=== PATIENT | male | born 1975 | race Two or more races ===

== ENCOUNTER 2019-01-22 21:05 | Inpatient (IN) | payer OTHER ==
[~2019-01-22] VITALS: Ht 177.8 cm; Wt 80.9 kg
[2019-01-22] MEDS: MORPHINE SULF INJ 2 MG/ML SYRINGE 1ML IV PRN ×2 (10:28→10:48)
[2019-01-22 22:18] LABS: Urine Bacteria FEW /hpf (None Seen); Urine Blood 1+ /uL (Negative); Urine WBC <1 /hpf (0 - 3)
[2019-01-22 23:08] LABS: Basophils # (auto) 0 uL; Basophils % (auto) 0.3 % (0.0-2.0); Eosinophils # (auto) 0.1 uL; Eosinophils % (auto) 0.9 % (0.0-7.0); Hemoglobin 16.8 g/dL (13.5-17.5); Lymphocytes # (auto) 2.1 uL; Lymphocytes % (auto) 14.9 % (10.0-50.0); Mean Corpuscular Hemoglobin 28.9 pg (28.0-32.0); Mean Corpuscular Hgb Conc. 32.9 g/dL (32.0-36.0); Mean Corpuscular Volume 88.1 fL (80.0-100.0); Monocytes # (auto) 1.8 uL; Monocytes % (auto) 12.8 % (0.0-12.0); Neutrophils # (auto) 9.8 uL; Neutrophils % (auto) 71.1 % (37.0-80.0); Platelet Count (auto) 283 10^3/uL (140-450); Red Blood Cells 5.79 10^6/uL (4.5-5.90); Red Cell Distribution Width 14.2 % (11.8-14.3); White Blood Cell 13.8 10^3/uL (4.4-10.8)
[2019-01-22 23:21] LABS: INR 0.93 (0.9-1.15); Partial Thromboplastin Time 28.5 sec (23.78-33.04)
[2019-01-22 23:26] LABS: Albumin 3.8 g/dL (3.4-5.0); BUN/Creatinine Ratio 10.8; Calcium 8.9 mg/dL (8.5-10.1); Magnesium 2.8 mg/dL (1.6-2.6); Potassium 3.7 mmol/L (3.5-5.1)
[2019-01-22 23:29] LABS: Bilirubin, Total 0.8 mg/dL (0.2-1.0); Total Protein 7.4 g/dL (6.4-8.2)
[2019-01-23] MEDS ORDERED: SODIUM CHLORIDE 0.9% 1,000 ML IV ONE ×2 (00:45→01:15)
[2019-01-23] MEDS ORDERED: metroNIDAZOLE 500MG/100ML 100 ML IV ONE ×2 (00:45→01:15)
[2019-01-23] MEDS ORDERED: ONDANSETRON HCL 4 MG/2 ML VIAL IV ONE ×3 (00:45→04:45)
[2019-01-23] MEDS ORDERED: HYDROmorphone HCL 2 MG/ML VL IV ONE (00:45)
[2019-01-23] MEDS ORDERED: MORPHINE SULFATE 4 MG/ML SYR/VIAL IV ONE ×2 (01:15→04:45)
[2019-01-23] MEDS ORDERED: cefTRIAXone 1GM/50ML D5W 50 ML IV ONE (01:15)
[2019-01-23] MEDS ORDERED: ONDANSETRON HCL 4 MG/2 ML VIAL ONE (04:46)
[2019-01-23] MEDS ORDERED: MORPHINE SULFATE 4 MG/ML SYR/VIAL ONE (04:46)
[2019-01-23] MEDS ORDERED: ONDANSETRON HCL 4 MG/2 ML VIAL IV PRN (05:00)
[2019-01-23] MEDS ORDERED: ACETAMINOPHEN 325 MG TAB PO PRN (05:00)
[2019-01-23] MEDS: SODIUM CHLORIDE 0.9% 1,000 ML IV SCH ×2 (05:00→06:04)
[2019-01-23] MEDS: metroNIDAZOLE 500MG/100ML 100 ML IV SCH ×3 (06:46→22:44)
[2019-01-23] MEDS ORDERED: ceFAZolin 1GM/50ML 50 ML IV ONE (08:24)
[2019-01-23] MEDS ORDERED: NEOMYCIN-BACITRACIN-POLYM UNITDOSE PKG TOP OINT TOP ONE (08:50)
[2019-01-23] MEDS ORDERED: GLYCOPYRROLATE 0.2 MG/ML 1ML VIAL IV ONE (08:50)
[2019-01-23] MEDS ORDERED: MIDAZOLAM HCL 1MG/1ML-2 ML VIAL ONE (08:51)
[2019-01-23] MEDS ORDERED: fentaNYL CITRATE 5 ML ONE (08:51)
[2019-01-23] MEDS ORDERED: PROPOFOL 10 MG/ML 20 ML IV ONE (09:52)
[2019-01-23] MEDS ORDERED: MORPHINE SULF INJ 2 MG/ML SYRINGE 1ML ONE (10:24)
--- NOTE | 2019-01-23 11:20 | NUR ---
Dr. Maravilla at bedside.
--- NOTE | 2019-01-23 11:30 | NUR ---
MS admit from ER KALI CHRIS admitted to tele/MS after SBAR received. Patient oriented to JORDAN REVELES, primary RN, unit, room, bed, and unit policies regarding patient care and visiting hours. Patient weighed by bed scale and encouraged to call if they need something. All questions and concerns addressed, patient verbalized understanding. Note:
[2019-01-23] MEDS: cefTRIAXone 1GM/50ML D5W 50 ML IV SCH (12:00)
[2019-01-23] MEDS: PANTOPRAZOLE 40 MG/10 ML VIAL IV SCH (12:01)
[2019-01-23] MEDS: HYDROcodone-ACET 5/325MG TAB PO PRN (12:08)
[2019-01-23 12:31] VITALS: BP 112/69
[2019-01-23 12:35] LABS: Cholesterol 195 mg/dL (< 200); HDL Cholesterol 64 mg/dL (40-59); LDL Cholesterol 123 mg/dL (< 100); Triglycerides 96 mg/dL (< 150)
[2019-01-23] MEDS: MORPHINE SULFATE 4 MG/ML SYR/VIAL IV PRN ×2 (14:22→19:53)
[2019-01-23 14:57] VITALS: BP 112/69
[2019-01-23 16:59] VITALS: BP 113/64
--- NOTE | 2019-01-23 19:15 | NUR ---
Opening Shift Note Received report from maritza Max RN. Assumed care of patient, awake and alert. No S/S of distress/SOB or pain. Instructed on POC and to call for assist PRN, will continue to monitor for changes Q1hr and PRN. Bed placed in lowest position, call light within reach.
[2019-01-23 20:00] VITALS: BP 110/62
[2019-01-23 21:00] VITALS: BP 110/62
[2019-01-24 05:00] VITALS: BP 103/65
--- NOTE | 2019-01-24 05:02 | NUR ---
Patient resting in bed alert and awake, no distress noted and patient denies pain.
[2019-01-24] MEDS: metroNIDAZOLE 500MG/100ML 100 ML IV SCH (05:19)
[2019-01-24] MEDS: SODIUM CHLORIDE 0.9% 1,000 ML IV SCH (05:20)
[2019-01-24 05:55] LABS: Basophils # (auto) 0 uL; Basophils % (auto) 0.4 % (0.0-2.0); Eosinophils # (auto) 0.1 uL; Eosinophils % (auto) 1.2 % (0.0-7.0); Hematocrit 44.2 % (41.0-53.0); Hemoglobin 14.4 g/dL (13.5-17.5); Lymphocytes # (auto) 1.9 uL; Lymphocytes % (auto) 19.4 % (10.0-50.0); Mean Corpuscular Hemoglobin 28.9 pg (28.0-32.0); Mean Corpuscular Hgb Conc. 32.5 g/dL (32.0-36.0); Mean Corpuscular Volume 88.8 fL (80.0-100.0); Monocytes # (auto) 0.9 uL; Monocytes % (auto) 9.8 % (0.0-12.0); Neutrophils # (auto) 6.7 uL; Neutrophils % (auto) 69.2 % (37.0-80.0); Nucleated Red Blood Cells % 0.3 %; Platelet Count (auto) 236 10^3/uL (140-450); Red Blood Cells 4.98 10^6/uL (4.5-5.90); Red Cell Distribution Width 14.4 % (11.8-14.3); White Blood Cell 9.6 10^3/uL (4.4-10.8)
[2019-01-24 06:18] LABS: Calcium 8.4 mg/dL (8.5-10.1); Potassium 4.3 mmol/L (3.5-5.1)
[2019-01-24 06:19] LABS: BUN/Creatinine Ratio 8.5
--- NOTE | 2019-01-24 08:19 | NUR ---
Opening Shift Note Assumed care of patient, awake and alert. No S/S of distress/SOB or pain. Instructed on POC and to call for assist PRN, will continue to monitor for changes Q1hr and PRN.
[2019-01-24 08:32] VITALS: BP 105/64
[2019-01-24] MEDS: cefTRIAXone 1GM/50ML D5W 50 ML IV SCH (08:55)
[2019-01-24] MEDS: PANTOPRAZOLE 40 MG/10 ML VIAL IV SCH (08:55)
[2019-01-24] MEDS: HYDROcodone-ACET 5/325MG TAB PO PRN (09:32)
[2019-01-24 11:28] VITALS: BP 112/69
--- NOTE | 2019-01-24 12:32 | NUR ---
Discharge instructions given as ordered. Encourage to follow up with PMD (Follow up with Dr. Regan in 10 days #[phone] Address : [id number] [place] [address] Rd, [place], [address] Follow up with PCP Dr. Jes Merida in 1-2 weeks Address : [address] [address] , [address] )as instructed. All questions and concerns addressed. Patient verbalized understanding. Medication reconciliation form completed and copy given to patient. H IV removed with catheter intact, pressure dressing applied. Patient taken to vehicle via wheelchair with all personal belongings, accompanied by staff and family member. No distress noted at time of departure.
== END 2019-01-24 12:30 | disposition home or self-care (01) | DRG 343 ==
LOC: ER 21:13 → OVERFLOW 01-23 05:47 → WEST WING 01-23 11:19
PROVIDERS: ADMIT Nurse Practitioner; ATTEND Family Medicine
PROC: 0DTJ4ZZ Resection of Appendix, Percutaneous Endoscopic Approach (ICD-10-PCS; principal; 2019-01-23 08:54)
DX: K35.80 Unspecified acute appendicitis (principal); E78.00 Pure hypercholesterolemia, unspecified; D72.829 Elevated white blood cell count, unspecified
CPT/HCPCS: 36415; 80048; 80053; 80061; 81001; 82150; 83690; 83735; 85025; 85610; 85730; 86850; 86900; 86901; 96361; 96365; 96375; C9113; G0378; J0690; J0696; J2250; J2405; J2704; J3490

== ENCOUNTER 2019-01-31 11:13 | Emergency (ER) | payer OTHER ==
[~2019-01-31] VITALS: Ht 177.8 cm; Wt 74.4 kg
[2019-01-31 11:57] LABS: Basophils # (auto) 0 uL; Eosinophils # (auto) 0.1 uL; Lymphocytes # (auto) 1.6 uL; Nucleated Red Blood Cells % 0.1 %
[2019-01-31 11:59] LABS: Basophils % (auto) 0.4 % (0.0-2.0); Eosinophils % (auto) 1.2 % (0.0-7.0); Hematocrit 52.9 % (41.0-53.0); Hemoglobin 17.5 g/dL (13.5-17.5); Lymphocytes % (auto) 16.9 % (10.0-50.0); Mean Corpuscular Hemoglobin 29.2 pg (28.0-32.0); Mean Corpuscular Hgb Conc. 33.1 g/dL (32.0-36.0); Mean Corpuscular Volume 88.2 fL (80.0-100.0); Monocytes # (auto) 0.8 uL; Monocytes % (auto) 8.5 % (0.0-12.0); Neutrophils # (auto) 6.9 uL; Platelet Count (auto) 384 10^3/uL (140-450); Red Cell Distribution Width 13.9 % (11.8-14.3); White Blood Cell 9.5 10^3/uL (4.4-10.8)
[2019-01-31 12:13] LABS: INR 1.03 (0.9-1.15); Partial Thromboplastin Time 28.5 sec (23.78-33.04)
[2019-01-31 12:28] LABS: Albumin 4.1 g/dL (3.4-5.0); BUN/Creatinine Ratio 13.5; Calcium 9.3 mg/dL (8.5-10.1)
[2019-01-31 12:30] LABS: Bilirubin, Total 0.3 mg/dL (0.2-1.0); Total Protein 7.7 g/dL (6.4-8.2)
[2019-01-31] MEDS ORDERED: IOHEXOL 300 MG/ML 100ML BOTTLE IJ ONE (13:15)
[2019-01-31 13:32] VITALS: BP 140/82
== END 2019-01-31 15:37 | disposition home or self-care (01) ==
LOC: ER 11:13
DX: K64.9 Unspecified hemorrhoids (principal); Z90.89 Acquired absence of other organs
CPT/HCPCS: 36415; 74177; 80053; 85025; 85610; 85730; 99284; Q9967